=== PATIENT | male | born 1995 | race Caucasian/White ===

== ENCOUNTER 2024-07-11 10:35 | Inpatient (IN) | payer SELFPAY ==
[~2024-07-11] VITALS: Ht 172.7 cm; Wt 80.3 kg
[2024-07-11 10:37] VITALS: O2SAT 99
[2024-07-11 11:38] LABS: BASOPHILS % 0.5 % (0.0-2.0); EOSINOPHILS % 2.4 % (0.0-5.0); HEMATOCRIT. 42.2 % (42.0-52.0); HEMOGLOBIN. 13.6 g/dL (14.0-18.0); LYMPHOCYTES % 28.6 % (20.0-50.0); MEAN CORPUSCULAR HEMOGLOBIN 30.5 pg (28.0-32.0); MEAN CORPUSCULAR HGB CONC 32.2 g/dL (31.0-37.0); MEAN CORPUSCULAR VOLUME 94.6 fL (80.0-94.0); MEAN PLATELET VOLUME 7.3 fl (7.4-10.4); MONOCYTES % 7.7 % (2.0-8.0); NEUTROPHILS % 60.8 % (40.0-76.0); PLATELET 269 x1000/uL (130-400); RED BLOOD CELL COUNT 4.46 mill/uL (4.7-6.1); WHITE BLOOD COUNT 5.6 x1000/uL (4.5-11.0)
[2024-07-11 11:50] LABS: CHLORIDE 112 mEq/L (98-107); POTASSIUM 3.2 mEq/L (3.5-5.1); SODIUM 143 mEq/L (136-145)
[2024-07-11 11:51] LABS: CALCIUM 9.3 mg/dL (8.7-10.4)
[2024-07-11 11:56] LABS: CREATININE 0.7 mg/dL (0.6-1.3); GLUCOSE 91 mg/dL (70-105); UREA NITROGEN BLOOD 9 mg/dL (9-23)
[2024-07-11] MEDS: NALOXONE HCL 1MG/ML 2ML VIAL IV ONE (11:59)
[2024-07-11 12:50] LABS: CARBON DIOXIDE 25 mEq/L (21-32)
[2024-07-11 14:54] LABS: ETHANOL BLOOD < 10 mg/dL (<10)
[2024-07-11] MEDS: HALOPERIDOL LACTATE 5MG/ML VIAL IM NR (19:58)
[2024-07-11] MEDS: LORAZEPAM 2MG/ML INJ IV NR (19:59)
[2024-07-12 09:00] VITALS: BP 107/68; PULSE 74; RESP 18; TEMP 36.33624; O2SAT 98
[2024-07-12] MEDS ORDERED: CLONIDINE 0.1MG TABLET PO PRN (09:45)
[2024-07-12] MEDS ORDERED: ACETAMINOPHEN 325MG TABLET PO PRN (09:45)
[2024-07-12] MEDS ORDERED: IPRATROPIUM/ALBUTEROL 0.5-3(2.5)MG/3ML NEB HHN PRN (09:45)
[2024-07-12] MEDS ORDERED: DIPHENHYDRAMINE 50MG/ML VIAL IV PRN (09:45)
[2024-07-12] MEDS ORDERED: ONDANSETRON HCL 4MG/2ML INJ IV PRN (09:45)
[2024-07-12 12:00] VITALS: BP 110/74; PULSE 80; RESP 20; TEMP 36.6696; O2SAT 96
[2024-07-12 13:15] VITALS: BP 107/68; PULSE 77; RESP 20; TEMP 36.6404
[2024-07-12 15:53] VITALS: BP 108/66; PULSE 75; RESP 18; TEMP 36.61404; O2SAT 97
[2024-07-12 23:43] LABS: CARBON DIOXIDE 28 mEq/L (21-32); CHLORIDE 107 mEq/L (98-107); POTASSIUM 3.4 mEq/L (3.5-5.1); SODIUM 141 mEq/L (136-145)
[2024-07-12 23:48] LABS: CREATININE 0.8 mg/dL (0.6-1.3)
[2024-07-12 23:49] LABS: GLUCOSE 105 mg/dL (70-105); UREA NITROGEN BLOOD 10 mg/dL (9-23)
[2024-07-12 23:50] LABS: ALANINE AMINOTRANSFERASE 8 IU/L (10-49); ALBUMIN 3.9 g/dL (3.2-4.8); ASPARTATE AMINOTRANSFERASE 13 IU/L (<34)
[2024-07-12 23:51] LABS: BILIRUBIN DIRECT 0.2 mg/dL (<=3.0); BILIRUBIN TOTAL 0.5 mg/dL (0.1-1.0); PROTEIN TOTAL 6.1 g/dL (6.0-8.3)
[2024-07-13] VITALS: BP 98/54; PULSE 72; RESP 18; TEMP 36.6696; O2SAT 96
[2024-07-13 04:00] VITALS: BP 106/62; PULSE 70; RESP 20; TEMP 36.3918; TEMP 36.39180; O2SAT 98
[2024-07-13 07:35] LABS: CARBON DIOXIDE 25 mEq/L (21-32); CHLORIDE 108 mEq/L (98-107); SODIUM 139 mEq/L (136-145)
[2024-07-13 07:36] LABS: CALCIUM 9.1 mg/dL (8.7-10.4)
[2024-07-13 07:41] LABS: CREATININE 0.8 mg/dL (0.6-1.3); GLUCOSE 93 mg/dL (70-105); UREA NITROGEN BLOOD 8 mg/dL (9-23)
[2024-07-13 08:36] LABS: BASOPHILS % 0.6 % (0.0-2.0); HEMATOCRIT. 42.2 % (42.0-52.0); HEMOGLOBIN. 13.5 g/dL (14.0-18.0); MEAN CORPUSCULAR HEMOGLOBIN 30.9 pg (28.0-32.0); MEAN CORPUSCULAR HGB CONC 32.1 g/dL (31.0-37.0); MEAN CORPUSCULAR VOLUME 96.5 fL (80.0-94.0); MEAN PLATELET VOLUME 7.4 fl (7.4-10.4); MONOCYTES % 8.6 % (2.0-8.0); NEUTROPHILS % 52.8 % (40.0-76.0); PLATELET 241 x1000/uL (130-400); RED BLOOD CELL COUNT 4.37 mill/uL (4.7-6.1); RED CELL DISTRIBUTION WIDTH 14.5 % (11.6-14.6)
== END 2024-07-13 18:00 | disposition left against medical advice (07) | DRG 817 ==
LOC: ER 10:35 → 7EST 12:08 → EDBEDREQ 12:15 → EDBEDREQTM 12:15 → 7EST 07-12 08:22
PROVIDERS: ADMIT Internal Medicine; ATTEND Internal Medicine
DX: T50.992A Poisoning by other drugs, medicaments and biological substances, intentional self-harm, initial encounter (principal); G93.40 Encephalopathy, unspecified; F32.A Depression, unspecified; Z59.00 Homelessness unspecified; Y92.89 Other specified places as the place of occurrence of the external cause
CPT/HCPCS: 36415; 71045; 80048; 80053; 80076; 80307; 80320; 80329; 85025; 99285; J1630; J2060; G0480